=== PATIENT | male | born 1985 | race Caucasian/White ===

== ENCOUNTER 2019-03-28 21:03 | Emergency (ER) | payer SELFPAY ==
--- NOTE | 2019-03-28 21:42 | ER Document Report ---
ED Medical Screen (RME) - General Chief Complaint: Suicidal Ideation Stated Complaint: ANXIETY Time Seen by Provider: 03/28/19 21:33 Notes: 33-year-old male with a history of anxiety depression coming in today because he is having some homicidal thoughts. No specific plan. For many years he has not been on any medications that had been prescribed to him in the past. He thought that he could handle all of this by himself. I have treated and performed a rapid initial assessment of this patient. A comprehensive ED assessment and evaluation of the patient, analysis of test results and completion of medical decision making process will be conducted by additional ED providers. PHYSICAL EXAMINATION: GENERAL: Well-appearing, well-nourished and in no acute distress. A&Ox4. Answers questions appropriately. LUNGS: Breath sounds clear to auscultation bilaterally and equal. No wheezes rales or rhonchi. HEART: Regular rate and rhythm without murmurs, rubs, gallops. ABDOMEN: Soft, nondistended abdomen. No guarding, no rebound. Normal bowel sounds present. No CVA tenderness bilaterally. + mild epigastric tenderness (cannot elicit thorough abd exam w/o table, however). Extremities: No cyanosis, clubbing, or edema b/l. NEUROLOGICAL: Normal speech, normal gait. PSYCH: Depressed affect Physical Exam - Vital signs Vitals: Temp Pulse Resp BP Pulse Ox 98.2 F 89 16 139/86 H 97 03/28/19 21:11 03/28/19 21:11 03/28/19 21:11 03/28/19 21:11 03/28/19 21:11 Course - Vital Signs Vital signs: Temp Pulse Resp BP Pulse Ox 98.2 F 89 16 139/86 H 97 03/28/19 21:11 03/28/19 21:11 03/28/19 21:11 03/28/19 21:11 03/28/19 21:11
[2019-03-29 01:41] LABS: ABSOLUTE EOSINOPHILS # (AUTO) 0.1 10^3/uL (0.0-0.6); ABSOLUTE LYMPHOCYTES (AUTO) 2.4 10^3/uL (0.5-4.7); ABSOLUTE MONOCYTES (AUTO) 0.6 10^3/uL (0.1-1.4); ABSOLUTE NEUT (AUTO) 4.1 10^3/uL (1.7-8.2); BASOPHILS % (AUTO) 0.5 % (0-2); EOSINOPHILS % (AUTO) 1.5 % (0-6); HEMATOCRIT 43.4 % (37.9-51.0); HEMOGLOBIN 14.9 g/dL (13.5-17.0); LYMPHOCYTES % (AUTO) 33.2 % (13-45); MEAN CORPUSCULAR HEMOGLOBIN 31.5 pg (27.0-33.4); MEAN CORPUSCULAR HGB CONC 34.3 g/dL (32.0-36.0); MEAN CORPUSCULAR VOLUME 92 fl (80-97); MONOCYTES % (AUTO) 8.1 % (3-13); PLATELET COUNT 145 10^3/uL (150-450); RED BLOOD COUNT 4.72 10^6/uL (4.35-5.55); RED CELL DISTRIBUTION WIDTH 12.5 % (11.5-14.0); SEGMENTED NEUTROPHILS % (AUTO) 56.7 % (42-78); TOTAL CELLS COUNTED % (AUTO) 100 %; WHITE BLOOD COUNT 7.2 10^3/uL (4.0-10.5)
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
[2019-03-29 02:26] LABS: ALANINE AMINOTRANSFERASE 51 U/L (21-72); ALKALINE PHOSPHATASE 53 U/L (38-126); ANION GAP 9 (5-19); ASPARTATE AMINO TRANSFERASE 37 U/L (17-59); BILIRUBIN,DIRECT 0.2 mg/dL (0.0-0.4); BILIRUBIN,TOTAL 0.4 mg/dL (0.2-1.3); BLOOD UREA NITROGEN 13 mg/dL (7-20); CALCIUM 9.2 mg/dL (8.4-10.2); CARBON DIOXIDE 28 mmol/L (22-30); CHLORIDE 104 mmol/L (98-107); GLUCOSE 95 mg/dL (75-110); POTASSIUM 3.8 mmol/L (3.6-5.0); SODIUM 140.6 mmol/L (137-145)
[2019-03-29 02:29] LABS: ACETAMINOPHEN < 10 ug/mL (10-30); ALCOHOL < 10 mg/dL (NONE DETECTED); SALICYLATE < 1.0 mg/dL (2.0-20.0)
[2019-03-29 02:32] LABS: URINE BENZODIAZEPINES SCREEN NEGATIVE
[2019-03-29 02:34] LABS: URINE BARBITURATES SCREEN NEGATIVE; URINE COCAINE SCREEN NEGATIVE; URINE MARIJUANA (THC) SCREEN UNCONFIRMED POSITIVE; URINE METHADONE SCREEN NEGATIVE; URINE PHENCYCLIDINE SCREEN NEGATIVE
[2019-03-29 07:08] VITALS: BP 129/76
--- NOTE | 2019-03-29 10:37 | PSYCHOLOGICAL NOTE ---
Psych Note - Psych Note Date seen by psych provider: 03/29/19 Psych Note: Presenting Problem: Depression, Anxiety, SI. Diagnosis Psychosocial Stress Polysubstance Use Unspecified Amphetamine/Methamphetamine Related Disorder Cannabis Use Disorder, Moderate Unspecified Bipolar and Related Disorder by history per patient Attention Deficit Hyperactivity Disorder by history per patient Impression/Plan: Patient is cleared from acute psychiatric services. He denied current SI/HI, admitted to past SI thoughts, denied previous SI attempts and had future/forward/goal oriented thinking when he mentioned getting to [place] Friday (04/02/19) for work he has lined up at [facility]. No observed psychosis which was not a presenting concern. Patient provided with the local outpatient MH resource sheet [facility] highlighted [facility] for crisis/talk therapy/linkage to other supports/services. Also provided a list of outpatient MH providers for the [place], [place] area and encouraged/recommended he get linked up there immediately. Finally provided the [facility] Street Sheet with local homeless correction highlighted. Consulted with Dr. De La Cruz regarding the management and care of patient. ED Physician in agreement with recommendations.
--- NOTE | 2019-03-30 00:22 | EKG REPORT ---
SEVERITY:- NORMAL ECG - SINUS RHYTHM : Confirmed by: Dc Maldonado 30-Mar-2019 00:22:08
== END 2019-03-29 13:13 | disposition home or self-care (01) ==
LOC: ER 21:03
DX: R45.851 Suicidal ideations (principal); Z63.79 Other stressful life events affecting family and household; Z86.59 Personal history of other mental and behavioral disorders
CPT/HCPCS: 36415; 80053; 80307; 84443; 85025; 93005; 93010; 99285